=== PATIENT | male | born 1985 | race African-American/Black ===

== ENCOUNTER 2018-03-03 14:50 | Emergency (ER) | payer OTHER ==
[~2018-03-03] VITALS: Ht 182.9 cm; Wt 98.8 kg
[~2018-03-03 14:50] MED LIST: AMOXICILLIN500 MG PO; NO HOME MEDS
[2018-03-03 15:14] VITALS: BP 143/89
== END 2018-03-03 15:20 | disposition home or self-care (01) | DRG 153 ==
LOC: ED 14:50
DX: J06.9 Acute upper respiratory infection, unspecified (principal); R05 Cough

== ENCOUNTER 2018-08-25 03:41 | Emergency (ER) | payer OTHER ==
[~2018-08-25] VITALS: Ht 182.9 cm; Wt 104.0 kg
[2018-08-25 04:08] VITALS: BP 146/93
== END 2018-08-25 04:08 | disposition home or self-care (01) | DRG 730 ==
LOC: ED 03:41
DX: N48.89 Other specified disorders of penis (principal)

== ENCOUNTER 2019-10-03 20:56 | Emergency (ER) | payer OTHER ==
[~2019-10-03] VITALS: Ht 182.9 cm; Wt 94.0 kg
[2019-10-03 21:28] VITALS: BP 119/75
[2019-10-03 21:39] LABS: HEMATOCRIT 46.6 % (39.0-50.0); HEMOGLOBIN 15.2 g/dl (14.0-18.0); IMMATURE GRANULOCYTES 0.3 % (0.0-5.0); MEAN CELL VOLUME 76.4 fL CALC (80.0-100.0); MEAN CORPUSCULAR HGB 24.9 pG CALC (26.0-32.0); MEAN CORPUSCULAR HGB CONC 32.6 g/dL CAL (32.0-36.0); NEUT# 1.58 thou/uL (1.82-7.42); RED BLOOD COUNT 6.1 mill/uL (4.70-6.10); RED CELL DISTRI WIDTH 14.9 % (11.5-15.5)
--- NOTE | 2019-10-07 09:23 | NUR ---
Notified patient of positive covid results. Patient denies any symptoms, no SOB or fever. Advised patient to quarantine per [facility] instructions and to return to ED with difficulty breathing or other urgent needs. Patient verbalized understanding. Patient verbally requested that I fax Covid results to his employer: [employer] fax# [phone].
== END 2019-10-03 22:15 | disposition home or self-care (01) | DRG 179 ==
LOC: ED 20:56
PROVIDERS: Family Medicine
DX: U07.1 COVID-19 (principal)

== ENCOUNTER 2020-05-21 18:17 | Emergency (ER) | payer SELFPAY ==
[~2020-05-21] VITALS: Ht 182.9 cm; Wt 94.0 kg
[2020-05-21 19:48] VITALS: BP 131/89
== END 2020-05-21 19:48 | disposition home or self-care (01) | DRG 115 ==
LOC: ED 18:17
PROC: 08C8XZZ Extirpation of Matter from Right Cornea, External Approach (ICD-10-PCS; principal; 2020-05-21)
DX: T15.01XA Foreign body in cornea, right eye, initial encounter (principal); X58.XXXA Exposure to other specified factors, initial encounter

== ENCOUNTER 2024-02-09 19:53 | Emergency (ER) | payer SELFPAY ==
[~2024-02-09] VITALS: Ht 182.9 cm; Wt 99.8 kg
[2024-02-09] MEDS ORDERED: ACETAMINOPHEN 500 MG TAB PO ONE (20:35)
[2024-02-09] MEDS ORDERED: AMOXICILLIN TRIHYDRATE 500 MG/CAP PO ONE (20:35)
[2024-02-09] MEDS ORDERED: NAPROXEN 250 MG/TAB PO ONE (20:35)
[2024-02-09] MEDS ORDERED: AMOXICILLIN500 MG PO (20:39)
[2024-02-09] MEDS ORDERED: NAPROXEN375 MG PO (20:39)
[2024-02-09 21:02] VITALS: BP 138/92
== END 2024-02-09 21:02 | disposition home or self-care (01) | DRG 159 ==
LOC: ED 19:53
DX: K02.9 Dental caries, unspecified (principal)

== ENCOUNTER 2024-05-21 20:44 | Emergency (ER) | payer OTHER ==
[~2024-05-21] VITALS: Ht 182.9 cm; Wt 99.0 kg
[~2024-05-21 20:44] MED LIST changes: +NAPROXEN375 MG PO
[2024-05-21] MEDS ORDERED: CLINDAMYCIN HCL 150 MG CAP PO ONE (21:25)
[2024-05-21] MEDS ORDERED: IBUPROFEN 800 MG/TAB PO ONE (21:25)
[2024-05-21] MEDS ORDERED: LIDOCAINE VISCOUS 2% 15 ML UDC PO ONE (21:35)
[2024-05-21] MEDS ORDERED: MOTRIN800 MG PO (21:35)
[2024-05-21] MEDS ORDERED: CLINDAMYCIN HC150 MG PO (21:35)
[2024-05-21 22:45] VITALS: BP 138/87
== END 2024-05-21 22:45 | disposition home or self-care (01) | DRG 159 ==
LOC: ED 20:44
DX: K04.7 Periapical abscess without sinus (principal); K02.9 Dental caries, unspecified; S02.5XXA Fracture of tooth (traumatic), initial encounter for closed fracture; X58.XXXA Exposure to other specified factors, initial encounter